=== PATIENT | male | born 1990 | race African-American/Black ===

== ENCOUNTER 2017-02-06 11:52 | Emergency (ER) | payer OTHER ==
[~2017-02-06] VITALS: Ht 175.3 cm; Wt 70.3 kg
--- NOTE | ~2017-02-06 | CT71 ---
[facility] A Service of [facility] RADIOLOGY TEXT RESULTS PATIENT: ARON HINKLE LOCATION: [facility] : [birth year] UNIT #: [id number] AGE: [address]: Josue Neville MD SEX: M ORDER DR: [id number] [facility]. [place], [place] [address] [id number] E MR#: [id number] Acc #: [id number] NAME: ARON HINKLE : 1990 SEX: M STUDY DATE/TIME: 02/06/2017 12:32 UNIT: [facility] ROOM: STUDY DESCRIPTION: CT Head Wo Contrast Attending Physician: Josue Neville M.D. Ordering Physician: Boyd Menjivar M.D. Primary Care Physician: Primary Care Physician No MEDICAL IMAGING REPORT This report is preliminary unless electronic signature is present EXAM Head CT without contrast HISTORY Pain behind left eye for the past 2 days with headache. COMPARISON 01/22/2016 TECHNIQUE Axial noncontrast images were obtained from the skull base to the vertex. This CT exam was performed with one or more of the following radiation dose reduction techniques: automatic exposure control, adjustment of mA and/or kV according to patient size, and iterative reconstruction. FINDINGS Ventricular size and configuration are normal. There is no evidence of acute infarct or hemorrhage. There are no extraaxial fluid collections. No mass lesion or mass effect is seen. There are no skull fractures. IMPRESSION Normal noncontrast head CT. Dictated by... Connor Mirza M.D. THIS IS AN ELECTRONICALLY VERIFIED REPORT Connor Mirza M.D. at 02/08/2017 4:01 PM RLF/to TD: 02/06/2017 19:06 JOB #: [id number] [facility] A Service [facility] RADIOLOGY TEXT RESULTS PATIENT: ARON HINKLE LOCATION: [place] : [birth year] UNIT #: [id number] AGE: [address]: Josue Neville MD SEX: M ORDER DR: MEDICAL IMAGING REPORT Page 1 of 1 COPY
== END 2017-02-06 13:36 | disposition home or self-care (01) ==
LOC: CED 11:52
DX: L03.213 Periorbital cellulitis (principal)
CPT/HCPCS: 70450; 99284